=== PATIENT | male | born 1955 | race Caucasian/White ===

== ENCOUNTER 2016-09-25 06:23 | Emergency (ER) | payer OTHER ==
--- NOTE | ~2016-09-25 | ER ---
PATIENT'S NAME: [facility] AGE: 61 Y [address] ROOM: [place] [address] LOCATION: [facility] ADMIT DATE: 09/25/2016 ER/Outpatient Report DISCHARGE DATE: 09/25/2016 FAMILY PHYSICIAN: Fredrick Ngo MD ATTENDING PHYSICIAN: Tressa Hughes TIME OF ARRIVAL: 0623 hours. TIME SEEN: 0643 hours. IDENTIFICATION: A 61-year-old male. CHIEF COMPLAINT: Short of breath. HISTORY OF PRESENT ILLNESS: The patient is a 61-year-old male with a nonproductive cough, clear nasal drainage, fever, shortness of breath, and diffuse myalgias, since late night/early Tuesday morning. His youngest son was ill, but tested negative for influenza, but his son's girlfriend was positive for influenza. The patient did have an influenza shot. He works at [employer]. He is . PAST MEDICAL HISTORY: ALLERGIES: NO KNOWN DRUG ALLERGIES. MEDICATIONS: No current medications. MEDICAL PROBLEMS: Denies. PRIOR SURGERIES: Left total knee arthroplasty and appendectomy. SOCIAL HISTORY: The patient lives at home with his , 21-year-old son, and younger son. REVIEW OF SYSTEMS: All systems reviewed and negative other than what is noted in the HPI. PATIENT'S NAME: [facility] AGE: 61 Y [address] ROOM: [place] [address] LOCATION: [facility] ADMIT DATE: 09/25/2016 ER/Outpatient Report DISCHARGE DATE: 09/25/2016 FAMILY PHYSICIAN: Fredrick Ngo MD ATTENDING PHYSICIAN: Tressa Hughes PHYSICAL EXAMINATION: VITAL SIGNS: Height 5 feet 7 inches, weight 98.6 kg, blood pressure 174/99, pulse 109, respirations 18, temperature 102, and saturation is 95% on room air. Recheck temperature after Motrin is 100.4. GENERAL: A pleasant, 61-year-old male in obvious distress. HEENT: Head: Normocephalic, atraumatic. Ears: TMs translucent, both ears. Nose: Mucosa pink, no lesions. Mouth: No lesions. Pharynx: Benign. NECK: Supple. No lymphadenopathy. LUNGS: Clear to auscultation. HEART: Regular rate and rhythm. No murmur, rub, or gallop. ABDOMEN: Bowel sounds present. Soft and nondistended. No hepatosplenomegaly. No palpable masses. Nontender. SKIN: [place], warm, and dry. No lesions or rashes noted. NEUROLOGIC: The patient is alert and oriented x4. Cranial nerves 2 through 12 grossly intact. Motor strength 5/5 throughout. Sensation is intact to light touch. LABORATORY AND DIAGNOSTIC DATA: Two-view chest x-ray: No acute process, pending radiology over-read. One blood culture pending. Procalcitonin 0.07. Sodium 137, potassium 3.6, chloride 106, CO2 of 21, BUN 12, creatinine 1.0, and blood sugar 120. Liver enzymes normal. Influenza A positive. Hemoglobin 14.7, hematocrit 41.9, platelets 132, and white count 9.6 with a normal differential. Lactate 2.0. PLAN: Influenza A. PLAN: Influenza handout. Tamiflu 75 mg b.i.d. for 5 days. Rest and fluids. [place] 5/325 one to two p.o. q.4-6 hours p.r.n. pain or cough, dispensed 20, with 0 refills. Rest and fluids. Follow up with Dr. Ngo next week, follow up sooner if any problems or concerns. The patient and his understand and agree, and all questions have been answered. I did talk with his about prophylaxis. She would like her older son, Luis Choudhury, who is 21 with no allergies and no medications, prophylaxis, as well as herself, Emelina Choudhury, takes lisinopril for hypertension, no allergies, and no other significant health problems. Side effects were discussed and a prescription written for each of them for Tamiflu 75 mg once daily for 10 days. The younger son has had symptoms already, is outside of the window, and he is actually improving and getting better at this time. PATIENT'S NAME: IMELDA CHOUDHURY [facility] AGE: 61 Y [address] ROOM: [place] [address] LOCATION: [facility] ADMIT DATE: 09/25/2016 ER/Outpatient Report DISCHARGE DATE: 09/25/2016 FAMILY PHYSICIAN: Fredrick Ngo MD ATTENDING PHYSICIAN: Tressa Hughes MD CAR/modl /[id number] d: 09/25/16 1422 t: 09/26/16 0722, OUTPATIENT REPORT
[2016-09-25 07:27] LABS: BASOPHIL # 0.1 K/uL (0.0-0.2); BASOPHIL % 0.5 %; EOSINOPHIL # 0.1 K/uL (0.0-0.5); EOSINOPHIL % 0.6 %; HEMATOCRIT 41.9 % (37.0-53.0); HEMOGLOBIN 14.7 g/dL (12.0-17.0); IMMATURE GRANULOCYTE % 0.3 %; LYMPHOCYTE # 0.8 K/uL (0.8-4.0); LYMPHOCYTE % 8.7 %; MCH 30.4 pg (27.0-34.0); MCHC 35.1 gm/dL (32.0-36.5); MCV 86.6 fl (83.0-98.0); MONOCYTE # 0.8 K/uL (0.0-1.0); MONOCYTE % 8.5 %; MPV 10.6 fl (9.4-12.4); NEUTROPHIL # (ANC) 7.8 K/uL (1.4-9.0); NEUTROPHIL % 81.4 %; NRBC % 0 /100WBC (0-0.00); PLATELET COUNT 132 K/uL (150-450); RBC 4.84 M/uL (4.00-6.00); RDW-CV 13.1 % (11.9-14.6); WBC 9.6 K/uL (4.0-11.0)
[2016-09-25 07:44] LABS: ALK PHOS 74 IU/L (33-138); ALT 36 IU/L (12-78); ANION GAP 13.6 (10.0-19.0); AST 29 IU/L (10-40); BLOOD UREA NITROGEN 12 mg/dL (6-24); CALCIUM 8.6 mg/dL (8.5-10.5); CHLORIDE 106 mMol/L (96-110); CO2 21 mMol/L (22-32); ESTIMATED GFR (MDRD EQUATION) > 60; POTASSIUM 3.6 mMol/L (3.7-5.1); SODIUM 137 mMol/L (135-145); TOTAL BILIRUBIN 1.2 mg/dL (0.0-1.5); TOTAL PROTEIN 7.5 g/dL (6.0-8.4)
== END 2016-09-25 08:45 | disposition disaster alternative care site (69) ==
LOC: GMED 06:23
PROVIDERS: Family Medicine
DX: J10.1 Influenza due to other identified influenza virus with other respiratory manifestations (principal)